=== PATIENT | male | born 1955 | race Caucasian/White ===

== ENCOUNTER 2017-09-28 17:46 | Emergency (ER) | payer MEDICAID ==
[~2017-09-28] VITALS: Ht 188 cm; Wt 95.3 kg
[2017-09-28 17:49] VITALS: Ht 188 cm; Wt 95.3 kg
--- NOTE | 2017-09-28 18:44 | RADRPT ---
PROCEDURE: Chest xray. CLINICAL INDICATION: Abdominal pain TECHNIQUE: Portable semiupright AP views of the chest were obtained. COMPARISON: None. FINDINGS: The cardiomediastinal silhouette is within normal limits. The lungs are well expanded and show norm al vascularity. No focal opacity, pleural effusion, or pneumothorax is identified. The skeletal st ructures and soft tissues are unremarkable. IMPRESSION: No acute intrathoracic abnormality. RPTAT:HKMK .Jennifer Brush MD, Date Time Electronically viewed and signed by .Jennifer Brush MD, on 09/28/2017 18:44 .K/
[2017-09-28 18:50] LABS: BASOPHILS % 0.3 % (0.0-2.0); EOSINOPHILS # 0.1 10^3/ul (0.0-0.5); EOSINOPHILS % 1.7 % (0.0-7.0); HEMATOCRIT 39.9 % (42.0-52.0); HEMOGLOBIN 12.7 g/dl (14.0-18.0); LYMPHOCYTES # 2.4 10^3/ul (0.8-2.9); LYMPHOCYTES % 30.2 % (15.0-51.0); MEAN CORPUSCULAR HEMOGLOBIN 26.6 pg (29.0-33.0); MEAN CORPUSCULAR HGB CONC 31.8 g/dl (32.0-37.0); MEAN CORPUSCULAR VOLUME 83.5 fl (82.0-101.0); MEAN PLATELET VOLUME 11.7 fl (7.4-10.4); MONOCYTE # 0.8 10^3/ul (0.3-0.9); MONOCYTES % 10.1 % (0.0-11.0); NEUTROPHIL # 4.5 10^3/ul (1.6-7.5); NEUTROPHILS % 57.6 % (39.0-77.0); PLATELET COUNT 151 10^3/UL (140-415); RED BLOOD COUNT 4.78 10^6/ul (4.70-6.10); RED CELL DISTRIBUTION WIDTH 13.6 % (11.5-14.5); WHITE BLOOD COUNT 7.8 10^3/ul (4.8-10.8)
[2017-09-28] MEDS ORDERED: AMLODIPINE 10 MG TAB PO ONE (19:00)
[2017-09-28] MEDS ORDERED: LABETALOL HCL 20MG INJ IV ONE (19:00)
[2017-09-28] MEDS ORDERED: AMLO-147 PO (19:05)
--- NOTE | 2017-09-28 19:08 | ERD ---
ER Documentation Chief Complaint Chief Complaint "High BP" at home. hasn't been to PCP in over 10 years HPI This 62-year-old male was brought in after his blood pressure was checked at home was found to be extremely high with a systolic of approximately 130. Top number was approximately 200. Patient has not seen a doctor in over 10 years. He does not have any chest pain shortness of breath or any other symptoms currently. ROS All systems reviewed and are negative except as per history of present illness. Medications Home Meds Active Scripts Amlodipine Besylate* (Amlodipine Besylate*) 10 Mg Tablet, 10 MG PO DAILY, #30 TAB Prov:JOHANNE BARCENAS DO 09/28/17 Allergies Allergies: Coded Allergies: No Known Allergy (Unverified , 09/28/17) PMhx/Soc History of Surgery: No Anesthesia Reaction: No Hx Neurological Disorder: No Hx Respiratory Disorders: No Hx Cardiac Disorders: No Hx Psychiatric Problems: No Hx Miscellaneous Medical Probl: No Hx Alcohol Use: No Hx Substance Use: No Hx Tobacco Use: No Smoking Status: Never smoker Physical Exam Vitals Vital Signs Date Time Temp Pulse Resp B/P Pulse Ox O2 Delivery O2 Flow Rate FiO2 09/28/17 17:49 99.0 94 19 183/99 98 Physical Exam Const: [] No distress Head: Atraumatic Eyes: Normal Conjunctiva ENT: Normal External Ears, Nose and Mouth. Neck: Full range of motion..~ No meningismus. Resp: Clear to auscultation bilaterally Cardio: Regular rate and rhythm, no murmurs Abd: Soft, non tender, non distended. Normal bowel sounds Skin: No petechiae or rashes Back: No midline or flank tenderness Ext: No cyanosis, or edema distal pulses intact and bounding all 4 extremities. Neur: Awake and alert Psych: Normal Mood and Affect Result Diagram: 09/28/170 09/28/171809 Results 24 hrs Laboratory Tests Test 09/28/17 18:10 09/28/17 18:30 White Blood Count 7.810^3/ul Red Blood Count 4.7810^6/ul Hemoglobin 12.7g/dl Hematocrit 39.9% Mean Corpuscular Volume 83.5fl Mean Corpuscular Hemoglobin 26.6pg Mean Corpuscular Hemoglobin Concent 31.8g/dl Red Cell Distribution Width 13.6% Platelet Count 21474^3/UL Mean Platelet Volume 11.7fl Neutrophils % 57.6% Lymphocytes % 30.2% Monocytes % 10.1% Eosinophils % 1.7% Basophils % 0.3% Nucleated Red Blood Cells % 0.0/100WBC Neutrophils # 4.510^3/ul Lymphocytes # 2.410^3/ul Monocytes # 0.810^3/ul Eosinophils # 0.110^3/ul Basophils # 0.010^3/ul Nucleated Red Blood Cells # 0.010^3/ul Sodium Level 143mmol/L Potassium Level 4.0mmol/L Chloride Level 105mmol/L Carbon Dioxide Level 27mmol/L Anion Gap 15 Blood Urea Nitrogen 31mg/dl Creatinine 1.43mg/dl Glucose Level 88mg/dl Calcium Level 8.6mg/dl Troponin I < 0.012ng/ml Urine Color YELLOW Urine Clarity CLEAR Urine pH 6.0 Urine Specific [place] 1.016 Urine Ketones NEGATIVEmg/dL Urine Nitrite NEGATIVEmg/dL Urine Bilirubin NEGATIVEmg/dL Urine Urobilinogen NEGATIVEmg/dL Urine Leukocyte Esterase TRACELeu/ul Urine Microscopic RBC 4/HPF Urine Microscopic WBC 4/HPF Urine Bacteria FEW/HPF Urine Mucus FEW/HPF Urine Hemoglobin 1+mg/dL Urine Glucose NEGATIVEmg/dL Urine Total Protein NEGATIVEmg/dl Current Medications Medications (Trade) Dose Ordered Sig/Yocasta Route PRN Reason Start Time Stop Time Status Last Admin Dose Admin Labetalol HCl (Labetalol) 20 mg ONCE ONCE IV 09/28/17 19:00 09/28/17 19:01 DC 09/28/17 19:09 Amlodipine Besylate (Norvasc) 10 mg ONCE ONCE PO 09/28/17 19:00 09/28/17 19:01 DC 09/28/17 19:10 Procedures/MDM Hypertension is likely been going on for some time. Patient does have evidence of mild renal failure already. EKG is nonischemic currently. Give the patient labetalol in order to lower his Bystolic to an acceptable level. Also gave the pill of p.o. amlodipine so does not rebound so quickly. I am also discharging him amlodipine 10 mg instructions see her primary care doctor as soon as possible. He is asymptomatic currently. Return precautions the ER for any chest pain or any other acute symptoms. Also L evidence of a mild UTI and I am discharging him on Keflex as well. EKG interpretation: Normal sinus rhythm rate of 74, right axis deviation, right bundle branch block, no ST or T-wave changes concerning for acute ischemia. Abnormal EKG Critical care time greater than 35 minutes: This includes treatment of extremely high blood pressure it was damaging the patient's kidneys, use of vasoactive medication labetalol and subsequent multiple visits patient's bedside to reassess status, discussion with patient and family, review of chart. This does not include any billable procedures. Departure Diagnosis: Primary Impression: Uncontrolled hypertension Additional Impressions: Renal insufficiency UTI (urinary tract infection) Condition: Fair Patient Instructions: Hypertension, Established, Out Of Control Referrals: [facility] YOU HAVE RECEIVED A MEDICAL SCREENING EXAM AND THE RESULTS INDICATE THAT YOU DO NOT HAVE A CONDITION THAT REQUIRES URGENT TREATMENT IN THE EMERGENCY DEPARTMENT. FURTHER EVALUATION AND TREATMENT OF YOUR CONDITION CAN WAIT UNTIL YOU ARE SEEN IN YOUR DOCTORS OFFICE WITHIN THE NEXT 1-2 DAYS. IT IS YOUR RESPONSIBILITY TO MAKE AN APPOINTMENT FOR FOLOW-UP CARE. IF YOU HAVE A PRIMARY DOCTOR --you should call your primary doctor and schedule an appointment IF YOU DO NOT HAVE A PRIMARY DOCTOR YOU CAN CALL OUR PHYSICIAN REFERRAL HOTLINE AT IF YOU CAN NOT AFFORD TO SEE A PHYSICIAN YOU CAN CHOSE FROM THE FOLLOWING [facility] [address] [facility]. [facility] [address] [facility] [address] [facility]. [facility] [address] [facility]. [facility] [address] [facility]. [facility]. [address] Additional Instructions: Call your primary care doctor TOMORROW for an appointment during the next 2-3 days.See the doctor sooner or return here if your condition worsens before your appointment time. JOHANNE BARCENAS DO Sep 28, 2017 19:08
[2017-09-28 19:16] LABS: ANION GAP 15 (8-16); BLOOD UREA NITROGEN 31 mg/dl (7-20); CALCIUM 8.6 mg/dl (8.4-10.2); CARBON DIOXIDE 27 mmol/L (21-31); CHLORIDE 105 mmol/L (97-110); CREATININE 1.43 mg/dl (0.61-1.24); GLUCOSE 88 mg/dl (70-220); SODIUM 143 mmol/L (135-144)
[2017-09-28 19:19] LABS: ADD UMIC YES; UR ASCORBIC ACID NEGATIVE (NEGATIVE); UR BACTERIA FEW /HPF (NONE SEEN); UR BILIRUBIN (Dip) NEGATIVE (NEGATIVE); UR BLOOD (Dip) 1+ mg/dL (NEGATIVE); UR CLARITY CLEAR (CLEAR); UR COLOR YELLOW (YELLOW); UR GLUCOSE (Dip) NEGATIVE (NEGATIVE); UR KETONES (Dip) NEGATIVE (NEGATIVE); UR LEUKOCYTE ESTERASE (Dip) TRACE Leu/ul (NEGATIVE); UR MUCUS FEW /HPF (NONE SEEN); UR NITRITE (Dip) NEGATIVE (NEGATIVE); UR RBC 4 /HPF (0-5); UR SPECIFIC GRAVITY (Dip) 1.016 (1.003-1.030); UR TOTAL PROTEIN (Dip) NEGATIVE (NEGATIVE); UR UROBILINOGEN (Dip) NEGATIVE (NEGATIVE)
[2017-09-28 19:49] LABS: TROPONIN-I < 0.012 ng/ml (0.00-0.12)
[2017-09-28 20:21] VITALS: BP 152/98; PULSE 82; RESP 18; TEMP 99
[2017-09-28] MEDS ORDERED: CEPH-443 PO (20:25)
== END 2017-09-28 20:21 | disposition home or self-care (01) ==
LOC: E/R 17:46
DX: I10 Essential (primary) hypertension (principal); N28.9 Disorder of kidney and ureter, unspecified; N39.0 Urinary tract infection, site not specified
CPT/HCPCS: 36415; 71010; 80048; 81001; 84484; 85025; 96374; Z7502; Z7610; 93005